=== PATIENT | female | born 1995 | race Caucasian/White ===

== ENCOUNTER 2024-12-07 18:20 | Emergency (ER) | payer BC, SELFPAY ==
[2024-12-07 18:23] VITALS: BP 123/74; PULSE 85; RESP 16; TEMP 36.9; O2SAT 99; BMI 25.1
[2024-12-07 20:38] VITALS: PULSE 89; O2SAT 98
[2024-12-07 20:39] VITALS: BP 129/60; PULSE 76; O2SAT 98
--- NOTE | 2024-12-07 20:45 | ED.EYEPROB ---
HPI - Eye Problem General Chief complaint: Eye Problems Stated complaint: R Eye Swelling, Can't See Out of It Time Seen by Provider: 12/07/24 20:41 History of Present Illness HPI Narrative: 29-year-old female presents for right eye swelling since today. She states that she woke up and it felt somewhat irritated, but as the day progressed it has swollen somewhat with some discharge present. Does not wear glasses or contacts at baseline. States that due to the swelling she feels like she can not see out of the eye. Denies pain. Related Data Home Medications Medication Instructions Recorded Confirmed albuterol sulfate 90 mcg/actuation 2 puff inhalation Q4-6H PRN 09/21/24 09/21/24 aerosol inhaler Previous Rx's Medication Instructions Recorded erythromycin 5 mg/gram (0.5 %) eye 0.5 inch EYE-RIGHT QID 7 days #3.5 12/07/24 ointment grams Patient History Medical History Nondiabetic gastroparesis Mixed urge and stress incontinence Asthma Seasonal allergies Social History Smoking Status: Never smoker Smoking Status: Never smoker Exam Initial Vital Signs Initial Vital Signs: Vital Signs Temperature 98.4 F 12/07/24 18:23 Pulse Rate 85 12/07/24 18:23 Respiratory Rate 16 12/07/24 18:23 Blood Pressure 123/74 12/07/24 18:23 Pulse Oximetry 99 12/07/24 18:23 Oxygen Delivery Method Room Air 12/07/24 18:23 Const: Awake, alert, no acute distress, nontoxic appearing Eye: PERRL, EOMI, R conjunctival injection, no fluoresceine uptake noted, eyelash matting present Skin: Warm, Dry, intact, no rashes Neuro: AO x3, CN II-XII grossly intact, moves all extremities Course Orders Ordered: Discontinued Medications Erythromycin (Erythromycin Ophth 1 Gm Oint) 1 applic EYE-RIGHT NOW ONE Stop: 12/07/24 20:56 Last Admin: 12/07/24 21:00 Dose: 1 applic Documented By: ARIES Fluorescein Sodium (Fluorescein 1 Mg Strip) 1 mg EYE-RIGHT NOW ONE Stop: 12/07/24 20:46 Last Admin: 12/07/24 20:50 Dose: 1 mg Documented By: ARIES Proparacaine HCl (Proparacaine 0.5% Ophth Rose) 1 drops EYE-RIGHT NOW ONE Stop: 12/07/24 20:46 Last Admin: 12/07/24 20:49 Dose: 1 drop Documented By: ARIES Vital Signs Vital signs: Vital Signs - 8 hr 12/07/24 20:38 12/07/24 20:39 12/07/24 20:39 Pulse Rate 89 76 Blood Pressure 129/60 Pulse Oximetry 98 98 12/07/24 21:00 Pulse Rate 74 Blood Pressure Pulse Oximetry 97 MDM - Eye Problem Differential Diagnosis Differential diagnosis: Likely corneal abrasion, conjunctivitis and periorbital cellulitis MDM Narrative Medical decision making narrative: One day of right eye irritation and discharge. No fluorescein uptake, no foreign body seen. Eyelash matting and conjunctival injection present consistent with bacterial conjunctivitis. Irritation resolved after proparacaine drop administration. Patient given erythromycin ointment and antibiotics sent to pharmacy of choice. Counseled on strict handwashing precautions and indication for ED return. Discharge Plan Departure Patient Disposition: Home Clinical Impression: Acute bacterial conjunctivitis Instructions: DI for Conjunctivitis Activity Restrictions/Additional Instructions: Use the antibiotic ointment as prescribed. If you notice worsening or do not improve with the prescribed treatment then please come back to the emergency department for repeat evaluation. Prescriptions: New erythromycin 5 mg/gram (0.5 %) ointment 0.5 inch EYE-RIGHT QID 7 Days Qty: 3.5 0RF No Action albuterol sulfate 90 mcg/actuation HFA aerosol inhaler 2 puff inhalation Q4-6H PRN Referrals: Pilar Bolivar FNP-JOSE E [Primary Care Provider] - Stand Alone Forms: Patient Portal/API/Survey
[2024-12-07] MEDS: PROPARACAINE 0.5% OPHTH SOL 1 DROPS EYE-RIGHT (20:49)
[2024-12-07] MEDS: FLUORESCEIN 1 MG STRIP EYE-RIGHT (20:50)
[2024-12-07 21:00] VITALS: PULSE 74; O2SAT 97
[2024-12-07] MEDS: ERYTHROMYCIN OPHTH 1 GM OINT 1 APPLIC EYE-RIGHT (21:00)
== END 2024-12-07 21:08 | disposition home or self-care (01) ==
PROVIDERS: Emergency Provider Emergency Medicine; PCP Nurse Practitioner Family
DX: H10.31 Unspecified acute conjunctivitis, right eye (principal)
CPT/HCPCS: 99282